=== PATIENT | male | born 1945 ===

== ENCOUNTER → 2023-01-03 11:00 | Outpatient (CLI) | payer MEDICARE, SELFPAY ==
--- NOTE | ~2023-01-03 | CT_ITS ---
EXAMINATION: CT lumbar spine wo con DATE: 01/03/2023 11:18 INDICATION: Lumbar radiculopathy. TECHNIQUE: Computed tomography (CT) of the lumbar spine was performed without intravenous contrast. A utomated exposure control and iterative reconstruction technique were employed. The dose-length produ ct was 981.20 mGy-cm. COMPARISON: None FINDINGS: There is calcified atherosclerosis of the aorta and many of the other arteries. 5 degrees l evocurvature of lumbar spine. There is mild chronic anterior wedging of T12 and L1 vertebral bodies. There is moderately decreased disc height at L3-L4 and severely decreased disc height at L4-L5. Parti ally visualized are epidural electrodes. The following disc levels are specifically discussed: L1-L2: The disc is mildly bulging. There is severe bilateral facet joint osteoarthritis. There is mil d bilateral neural foraminal stenosis. There is no central canal stenosis. L2-L3: This is bulging. There is severe bilateral facet joint osteoarthritis. There is moderate bilat eral neural foraminal stenosis. There is moderate central canal stenosis. L3-L4: The disc is bulging. There is severe bilateral facet joint osteoarthritis. There is moderate b ilateral neural foraminal stenosis. There is mild central canal stenosis. L4-L5: The disc is bulging. There is severe bilateral facet joint osteoarthritis. There is moderate r ight and mild left neural foraminal stenosis. There is mild central canal stenosis. L5-S1: The disc is bulging. There is severe bilateral facet joint osteoarthritis. There is mild bilat eral neural foraminal stenosis. There is no central canal stenosis. IMPRESSION: 1. Severe lumbar spondylosis. Reviewed, dictated and finalized at location E.
== END ==
PROVIDERS: PCP Physical Medicine & Rehabilitation; Visit Provider Physical Medicine & Rehabilitation
DX: M47.26 Other spondylosis with radiculopathy, lumbar region (principal)
CPT/HCPCS: 72131